=== PATIENT | female | born 1955 | race Two or more races ===

== ENCOUNTER 2019-11-13 05:45 | Day surgery (SDC) | payer OTHER | END 2019-11-13 10:40 | disposition home or self-care (01) | LOC: AMB-ENDOS 05:45 → ADM 13:00 | PROVIDERS: ATTEND Surgery | DX: K62.89 Other specified diseases of anus and rectum (principal); K64.1 Second degree hemorrhoids; Z20.828 Contact with and (suspected) exposure to other viral communicable diseases; Z12.11 Encounter for screening for malignant neoplasm of colon ==